=== PATIENT | female | born 1970 | race Caucasian/White ===

== ENCOUNTER 2017-05-06 05:08 | Emergency (ER) | payer MEDICAID ==
[~2017-05-06] VITALS: Ht 160 cm; Wt 92.5 kg
[~2017-05-06 05:08] MED LIST: MECL12.574 PO
[2017-05-06 05:13] VITALS: Ht 160 cm; Wt 92.5 kg
[2017-05-06] MEDS ORDERED: ACETAMINOPHEN 325 MG TAB PO STA (06:06)
[2017-05-06] MEDS ORDERED: SOD CHLORIDE 0.9% IV ONE (06:30)
[2017-05-06 06:53] LABS: BASOPHILS % 0.2 % (0.0-2.0); HEMATOCRIT 36.1 % (37.0-47.0); HEMOGLOBIN 12.9 g/dl (12.0-16.0); LYMPHOCYTES # 1.2 10^3/ul (0.8-2.9); LYMPHOCYTES % 7.2 % (15.0-51.0); MEAN CORPUSCULAR HEMOGLOBIN 31.3 pg (29.0-33.0); MEAN CORPUSCULAR HGB CONC 35.7 g/dl (32.0-37.0); MEAN CORPUSCULAR VOLUME 87.6 fl (82.0-101.0); MEAN PLATELET VOLUME 10.2 fl (7.4-10.4); MONOCYTE # 0.6 10^3/ul (0.3-0.9); MONOCYTES % 3.8 % (0.0-11.0); NEUTROPHIL # 14.4 10^3/ul (1.6-7.5); NEUTROPHILS % 88.3 % (39.0-77.0); PLATELET COUNT 296 10^3/UL (140-415); RED BLOOD COUNT 4.12 10^6/ul (4.20-5.40); RED CELL DISTRIBUTION WIDTH 12.5 % (11.5-14.5); WHITE BLOOD COUNT 16.3 10^3/ul (4.8-10.8)
--- NOTE | 2017-05-06 07:04 | RADRPT ---
PROCEDURE: Chest. CLINICAL INDICATION: Chest pain. TECHNIQUE: Single frontal view of the chest was obtained. COMPARISON: None. FINDINGS: The cardiac silhouette is within normal limits. The aortic arch is unremarkable. There is no focal consolidation, vascular congestion or pleural effusion. There is no pneumothorax. IMPRESSION: No evidence for active cardiopulmonary disease. .Otto Garcia MD, MD Date Time Electronically viewed and signed by .Otto Garcia MD, on 05/06/2017 07:03 .T/
[2017-05-06 07:11] LABS: ADD UMIC YES; UR ASCORBIC ACID NEGATIVE (NEGATIVE); UR BACTERIA FEW /HPF (NONE SEEN); UR BILIRUBIN (Dip) NEGATIVE (NEGATIVE); UR BLOOD (Dip) 3+ mg/dL (NEGATIVE); UR CLARITY SLIGHTLY CLOUDY (CLEAR); UR COLOR YELLOW (YELLOW); UR GLUCOSE (Dip) NEGATIVE (NEGATIVE); UR KETONES (Dip) NEGATIVE (NEGATIVE); UR LEUKOCYTE ESTERASE (Dip) NEGATIVE Leu/ul (NEGATIVE); UR MUCUS FEW /HPF (NONE SEEN); UR NITRITE (Dip) NEGATIVE (NEGATIVE); UR RBC 61 /HPF (0-5); UR SPECIFIC GRAVITY (Dip) 1.024 (1.003-1.030); UR SQUAMOUS EPITHELIAL CELL MODERATE /HPF (FEW); UR TOTAL PROTEIN (Dip) 1+ mg/dl (NEGATIVE); UR UROBILINOGEN (Dip) NEGATIVE (NEGATIVE)
[2017-05-06 07:13] LABS: INR 0.99; PROTIME 13.1 Sec (12.2-14.2)
[2017-05-06 07:18] LABS: ALANINE AMINOTRANSFERASE 25 IU/L (13-69); ALBUMIN 4.3 g/dl (3.3-4.9); ALKALINE PHOSPHATASE 70 IU/L (42-121); ANION GAP 21 (8-16); ASPARTATE AMINO TRANSFERASE 24 IU/L (15-46); BILIRUBIN,INDIRECT 0.1 mg/dl (0-1.1); BILIRUBIN,TOTAL 0.1 mg/dl (0.2-1.3); BLOOD UREA NITROGEN 10 mg/dl (7-20); CALCIUM 9.4 mg/dl (8.4-10.2); CARBON DIOXIDE 28 mmol/L (21-31); CHLORIDE 94 mmol/L (97-110); CREATININE 0.62 mg/dl (0.44-1.00); GLUCOSE 140 mg/dl (70-220); POSITIVE DIFF @See below; POTASSIUM 3.4 mmol/L (3.5-5.1); SODIUM 140 mmol/L (135-144); TOTAL PROTEIN 7.6 g/dl (6.1-8.1)
[2017-05-06 07:30] LABS: TROPONIN-I < 0.012 ng/ml (0.00-0.12)
[2017-05-06] MEDS ORDERED: SODIUM CHLORIDE 0.9% 1L BAG IV* STA (08:16)
[2017-05-06] MEDS: ONDANSETRON 4 MG INJ IV STA ×2 (08:16→08:54)
[2017-05-06] MEDS ORDERED: CEFTRIAXONE 2 GM/50 ML (PMX) 50 ML IVPB STA (08:16)
[2017-05-06] MEDS ORDERED: VANCOMYCIN 1 GM (PMX) 250 ML IVPB STA (08:16)
[2017-05-06] MEDS ORDERED: DEXAMETHASONE 10 MG/ML 1 ML INJ IV STA (08:16)
[2017-05-06] MEDS: morphine 4 MG/ML VIAL IV STA ×2 (08:16→08:54)
[2017-05-06] MEDS ORDERED: IBUPROFEN 800 MG TAB PO ONE (08:30)
--- NOTE | 2017-05-06 08:44 | RADRPT ---
PROCEDURE: CT brain without contrast CLINICAL INDICATION: Headache, fever TECHNIQUE: CT of the brain without contrast performed on a multidetector CT scanner, with multiplan ar reformats. One or more of the following dose reduction techniques were used: Automated exposure control, adjustment in mA and / or kV according to patient size, use of iterative reconstructive aaron hnique. CTDIvol = 44 mGy; DLP = 720 mGy-cm. COMPARISON: CT brain 04/20/2016 FINDINGS: No acute intracranial hemorrhage is identified. No extra-axial fluid collection is seen. There is no mass effect. No midline shift is identified. The ventricles and sulci are within normal limits for size and configuration. The density of the brain is unremarkable. Fleming-white differentiation is preserved. Calvarium and skull base are intact. Noted is mild focal right parietal scalp thickening without si gnificant change. There are bubbly secretions in the right sphenoid sinus. IMPRESSION: 1. No evidence of acute intracranial pathology. 2. Right sphenoid sinus disease with secretions which may reflect acute sinusitis in the appropriat e clinical setting. RPTAT: AA .Amilcar Vaughan MD, MD Date Time Electronically viewed and signed by .Amilcar Vaughan MD, on 05/06/2017 08:44 .O/
--- NOTE | 2017-05-06 09:07 | ERA ---
ER Documentation Chief Complaint Date/Time DATE: 05/06/17 TIME: 09:05 Chief Complaint fever/headache x /body aches 2 days HPI This is a 46-year-old female with no past medical history that presents to the emergency department complaining of generalized myalgias over the past 48 hours. She indicates that yesterday evening roughly 24 hours prior to arrival she developed a pulsating bilateral frontal headache. She states this is not the worst headache of her life and she denied any changes in vision or weakness of her upper or lower extremities. She denies any recent travel or prolonged immobilization. The patient also indicates that she has been experiencing neck pain since the headache began. She has had no recent sick contacts. She denies any abdominal pain. She complains of mild frequency urgency and dysuria. She did not take any antipyretics prior to arrival. She has no chest pain or pressure that radiates to the neck arm back or jaw. She has no shortness of breath at rest or exertion. ROS All systems reviewed and are negative except as per history of present illness. Medications Home Meds Active Scripts Cephalexin* (Keflex*) 500 Mg Capsule, 500 MG PO QID for 10 Days, CAP Prov:ALTA DILL 05/06/17 Acetaminophen* (Tylophen*) 500 Mg Capsule, 2 CAP PO Q8H Y for PAIN AND OR ELEVATED TEMP, #20 CAP Prov:ALTA DILL 05/06/17 Ibuprofen* (Motrin*) 800 Mg Tab, 800 MG PO Q6H Y for PAIN AND OR ELEVATED TEMP, #30 TAB Prov:ALTA DILL 05/06/17 Reported Medications Hydrochlorothiazide* (Hydrochlorothiazide*) 25 Mg Tab, 25 MG PO DAILY, #30 TAB 05/06/17 Losartan Potassium* (Losartan Potassium*) 25 Mg Tablet, 25 MG PO DAILY, TAB 05/06/17 Aspirin (Aspir-Low) 81 Mg Tablet.dr, 81 MG PO DAILY 05/06/17 Discontinued Scripts Meclizine Hcl* (Antivert*) 12.5 Mg Tab, 12.5 MG PO Q6H Y for DIZZINESS, #30 TAB Prov:MIGEL CAMACHO PA-C 04/20/16 Allergies Allergies: Coded Allergies: No Known Drug Allergies (Verified Allergy, Unknown, 05/06/17) PMhx/Soc History of Surgery: No Anesthesia Reaction: No Hx Neurological Disorder: No Hx Respiratory Disorders: No Hx Cardiac Disorders: Yes (htn) Hx Psychiatric Problems: No Hx Miscellaneous Medical Probl: No Hx Alcohol Use: No Hx Substance Use: No Hx Tobacco Use: No Smoking Status: Never smoker Physical Exam Vitals Vital Signs Date Time Temp Pulse Resp B/P Pulse Ox O2 Delivery O2 Flow Rate FiO2 05/06/17 11:26 98.6 88 17 117/72 100 Room Air 05/06/17 08:55 98.4 05/06/17 05:13 102.7 111 20 132/72 98 Physical Exam Constitutional:Well-developed. Well-nourished. HEENT:Normocephalic. Atraumatic.Pupils were equal round reactive to light. Dry mucous membranes.No tonsillar exudates. Endoscopy exam showed sharp optic disks and venous pulsations are present Neck: No nuchal rigidity. No lymphadenopathy. No posterior cervical spine tenderness or step-offs. Respiratory: Not using accessory muscles of respiration.Lungs were clear to auscultation bilaterally. No rhonchi. No rales. No wheezing. Cardiovascular: Regular rate regular rhythm.No murmurs. No rubs were appreciated.S1, S2 normal. Distal pulses are palpable 2+ bilaterally. GI: Abdomen was soft. Nontender. Non Distended. No pulsatile abdominal masses or bruits. No rebound. No guarding. Bowel sounds were present and normal. Muscle skeletal: Full range of motion of both the upper and lower extremities bilaterally.Normal muscle tone.No assymetrical calf tenderness or swelling. Skin: No petechia, no purpura. No lesions on the palms or the soles of the feet. No maculopapular rash. NEURO: Patient was alert, awake, orientated x3.No facial droop. Gait observed and normal with no ataxia.Speech had regular rate and rhythm. No focal neurological deficits. Result Diagram: 05/06/17 0630 05/06/17 0630 Results 24 hrs Laboratory Tests Test 05/06/17 06:30 05/06/17 06:45 05/06/17 09:48 05/06/17 11:07 White Blood Count 16.310^3/ul Red Blood Count 4.1210^6/ul Hemoglobin 12.9g/dl Hematocrit 36.1% Mean Corpuscular Volume 87.6fl Mean Corpuscular Hemoglobin 31.3pg Mean Corpuscular Hemoglobin Concent 35.7g/dl Red Cell Distribution Width 12.5% Platelet Count 87602^3/UL Mean Platelet Volume 10.2fl Neutrophils % 88.3% Lymphocytes % 7.2% Monocytes % 3.8% Eosinophils % 0.0% Basophils % 0.2% Nucleated Red Blood Cells % 0.0/100WBC Neutrophils # 14.410^3/ul Lymphocytes # 1.210^3/ul Monocytes # 0.610^3/ul Eosinophils # 0.010^3/ul Basophils # 0.010^3/ul Nucleated Red Blood Cells # 0.010^3/ul Prothrombin Time 13.1Sec Prothrombin Time Ratio 1.0 INR International Normalized Ratio 0.99 Activated Partial Thromboplast Time 28.0Sec Sodium Level 140mmol/L Potassium Level 3.4mmol/L Chloride Level 94mmol/L Carbon Dioxide Level 28mmol/L Anion Gap 21 Blood Urea Nitrogen 10mg/dl Creatinine 0.62mg/dl Glucose Level 140mg/dl Lactic Acid Level 1.6mmol/L 1.0mmol/L Calcium Level 9.4mg/dl Total Bilirubin 0.1mg/dl Direct Bilirubin 0.00mg/dl Indirect Bilirubin 0.1mg/dl Aspartate Amino Transf (AST/SGOT) 24IU/L Alanine Aminotransferase (ALT/SGPT) 25IU/L Alkaline Phosphatase 70IU/L Troponin I < 0.012ng/ml Total Protein 7.6g/dl Albumin 4.3g/dl Globulin 3.30g/dl Albumin/Globulin Ratio 1.30 Urine Color YELLOW Urine Clarity SLIGHTLY CLOUDY Urine pH 5.0 Urine Specific [place] 1.024 Urine Ketones NEGATIVEmg/dL Urine Nitrite NEGATIVEmg/dL Urine Bilirubin NEGATIVEmg/dL Urine Urobilinogen NEGATIVEmg/dL Urine Leukocyte Esterase NEGATIVELeu/ul Urine Microscopic RBC 61/HPF Urine Microscopic WBC 6/HPF Urine Squamous Epithelial Cells MODERATE/HPF Urine Bacteria FEW/HPF Urine Mucus FEW/HPF Urine Hemoglobin 3+mg/dL Urine Glucose NEGATIVEmg/dL Urine Total Protein 1+mg/dl CSF Tubes Submitted 4 CSF Volume 10.0ml CSF Appearance CLEAR CSF Color COLORLESS CSF WBC 2/cmm CSF RBC 0/uL CSF Cell Count Tube # TUBE#3 CSF Mononuclear Cells % (Auto) 100.0% CSF Polynuclear WBCs (%) 0.0% CSF Glucose 80mg/dl CSF Total Protein 43mg/dl Current Medications Medications (Trade) Dose Ordered Sig/Parag Route PRN Reason Start Time Stop Time Status Last Admin Dose Admin Acetaminophen 650 mg 650 mg ONCE STAT PO 05/06/17 06:06 05/06/17 06:11 DC 05/06/17 06:28 Sodium Chloride 2,870 ml @ 2,870 mls/hr BOLUS X1 ONCE IV 05/06/17 06:30 05/06/17 07:29 DC 05/06/17 06:28 Ceftriaxone Sodium (Rocephin) 50 ml @ 100 mls/hr ONCE STAT IVPB 05/06/17 08:16 05/06/17 08:45 DC 05/06/17 08:53 Dexamethasone 10 mg 10 mg ONCE STAT IV 05/06/17 08:16 05/06/17 08:20 DC 05/06/17 08:52 Vancomycin HCl (Vancocin) 250 ml @ 125 mls/hr ONCE STAT IVPB 05/06/17 08:16 05/06/17 10:15 DC 05/06/17 11:18 Sodium Chloride (NS) 2,870 ml BOLUS OVER 2 HOURS STAT IV* 05/06/17 08:16 05/06/17 08:20 DC Ibuprofen (Motrin) 800 mg ONCE ONCE PO 05/06/17 08:30 05/06/17 08:31 DC Morphine Sulfate (morphine) 4 mg ONCE STAT IV 05/06/17 08:16 05/06/17 08:20 DC 05/06/17 08:16 Ondansetron HCl (Zofran Inj) 4 mg ONCE STAT IV 05/06/17 08:16 05/06/17 08:20 DC 05/06/17 08:16 Procedures/MDM The patient presented to the emergency department with an acute single headache that presented within hours of onset my differential diagnosis included but was not limited to meningitis, SAH, intracerebral hemorrhage, hypertensive encephalopathy, cranial artery dissection, cerebral venous sinus thrombosis, traumatic, acute sinusitis. The patient has no ocular symptoms to suggest temporal neuritis, acute narrow-angle glaucoma or pituitary apoplexy. The patient did not appear to have a toxic or metabolic etiology such as fever, hypoglycemia, high-altitude disease or carbon monoxide poisoning. This was not the patients worse headache of their life. The patient had a complete neurologic and fundoscopic exam performed by myself that was normal with no focal neurological deficits or retinal hemorrhage. The patient stated this headache was not severe or distinct from other headaches and the history with the physical exam findings did not likely suggest SAH. 12 Lead EKG tracing ordered and reviewed by myself showed: Normal sinus rhythm of 100 bpm and no arrhythmia. [place] interval normal. QRS duration normal. No ST segment elevation No ST segment depression. No changes consistent with acute ischemia. Given that the patient was febrile with a headache and neck pain I did feel is necessary to rule out acute meningitis. Therefore, I did feel it was clinically necessary to perform a lumbar puncture and CSF analysis. The patient provided a written consent for lumbar puncture. Lumbar Puncture by me: Patient consented, time out performed, sterilely prepped/draped, anesthetized locally. Anesthesia: 1% lidocaine locally Location: One interspace below the iliac crest Technique: 20 gauge needle with stylet for entry and removal of needle Results: 2 attempts were made and I was unable to obtain CSF fluid. Therefore at this time I spoke with the radiologist who kindly stated they will perform a lumbar puncture under fluoroscopy. No post procedure complications , bleeding, numbness or weakness. In order to prevent delay of treatment the patient received IV steroids just prior to antibiotics being given which included ceftriaxone and vancomycin. The patient received intravenous morphine and Zofran for analgesic control. Prior to the lumbar puncture CT scan of the head had been performed and there is no signs of intracerebral hemorrhage mass-effect or midline shift. The radiologist was able to obtain a fluoroscopy guided lumbar puncture. Upon reviewing the results of the CSF fluid there was no signs of a subarachnoid hemorrhage and there was no findings to suggest bacterial viral or fungal meningitis. The patient had already received antibiotics which included ceftriaxone and vancomycin as stated above. She did have leukocytosis and did meet sirs criteria but her lactic acid was within normal limits. Observation Note: Time: 6 hours Family Hx: No Hypertension Evaluation: Multiple exams showed improving symptoms and no evidence of meningitis. I did feel the patient cephalgia secondary to myalgias from being febrile. Her fever completely resolved. The patient was to be admitted however when I explained to her that she would be staying in the hospital she stated she would prefer to be discharged home as her symptoms had completely resolved. She stated she needed to work and would feel more comfortable being discharged home with a prescription for antibiotics. The patient did have a urinary tract infection and therefore will be sent home with Keflex and fever control with Motrin and acetaminophen. The patient was also instructed to lie down flat over the next 6 hours to prevent a post lumbar puncture cephalgia. The patient was discharged home in fair condition. They were instructed to return to the emergency department at any time if there was any worsening of their condition. The patient stated they would follow up with their PCP in the next 24-48 hours to initiate a suitable medication regimen under the care of their PCP as well as to allow their PCP to monitor any drug reactions. The patient was discharged home with prescriptions after they gave informed consent to the new medication. They were also fully informed by myself on the adverse effects and adverse drug interactions in order to provide adequate safeguards to prevent possible adverse reactions to medications. Departure Diagnosis: Primary Impression: Urinary tract infection Qualified Code: N30.00 - Acute cystitis without hematuria Additional Impressions: Leukocytosis Qualified Code: D72.829 - Leukocytosis, unspecified type Fever Qualified Code: R50.9 - Fever, unspecified fever cause Headache, classical migraine Qualified Code: G43.109 - Migraine with aura and without status migrainosus, not intractable Condition: Fair ALTA DILL May 06, 2017 09:07
[2017-05-06 11:26] VITALS: BP 117/72; PULSE 88; RESP 17; TEMP 98.6
--- NOTE | 2017-05-06 12:08 | RADRPT ---
PROCEDURE: Lumbar puncture CLINICAL INDICATION: Headaches. Fever. TECHNIQUE: Risks benefits and alternatives of the procedure were explained to the patient. Inform ed written consent was obtained. The overlying skin of the lower back was prepped and draped in the usual sterile fashion. Utilizing fluoroscopic guidance, a skinny 22-gauge lumbar spinal needle was introduced into the spinal canal at the L4-5 level without difficulty. 10.5 cc of clear cerebrospi nal fluid was obtained. No complications occurred. The patient was instructed to lie flat for the next 4-6 hours to reduce the risk of spinal headache. Fluoro time: 0.7 minutes. Fluoroscopic imag es obtained: 2. Estimated cumulative dose: 25.5 mGy. COMPARISON: None available FINDINGS: Successful lumbar puncture under fluoroscopic guidance. IMPRESSION: Successful lumbar puncture under fluoroscopic guidance. RPTAT: QQ .John Harper MD, Date Time Electronically viewed and signed by .John Harper MD, on 05/06/2017 12:08 .A/
[2017-05-06 13:00] LABS: GLUCOSE,CSF 80 mg/dl (50-80)
[2017-05-06 13:16] LABS: CSF COLOR COLORLESS; CSF#TUBES REC'D 4
[2017-05-06 13:17] LABS: CSF#TUBE COUNT TUBE#1
[2017-05-06 13:19] LABS: CSF COLOR COLORLESS; CSF#TUBE COUNT TUBE#3; CSF#TUBES REC'D 4
[2017-05-06] MEDS ORDERED: ASPI81TA50 PO (13:36)
[2017-05-06] MEDS ORDERED: HYD25 PO (13:37)
[2017-05-06] MEDS ORDERED: LOSA25TA5 PO (13:37)
[2017-05-06] MEDS ORDERED: ACET500C5 PO (14:08)
[2017-05-06] MEDS ORDERED: IBUP800T25 PO (14:08)
[2017-05-06] MEDS ORDERED: CEPH-443 PO (14:08)
== END 2017-05-06 14:25 | disposition home or self-care (01) ==
LOC: FTE 05:08 → E/R 14:25
DX: N30.00 Acute cystitis without hematuria (principal); D72.829 Elevated white blood cell count, unspecified; G43.109 Migraine with aura, not intractable, without status migrainosus; I10 Essential (primary) hypertension; R07.9 Chest pain, unspecified; Z79.82 Long term (current) use of aspirin
CPT/HCPCS: 36415; 62270; 70450; 71010; 80053; 81001; 82945; 83605; 84157; 84484; 85025; 85610; 85730; 87040; 87070; 87086; 89051; 93005; 96361; 96365; 96366; 96375; J0696; J1100; J2270; J2405; J3370; J7030; Z7502; Z7610

== ENCOUNTER 2018-10-14 08:09 | Emergency (ER) | payer MEDICAID ==
[~2018-10-14] VITALS: Wt 94.1 kg
[~2018-10-14 08:09] MED LIST changes: +ACET500C5 PO; +ASPI81TA50 PO; +CEPH-443 PO; +HYDR25TA6 PO; +IBUP800T48 PO; +LOSA25TA12 PO; -MECL12.574 PO
[2018-10-14 08:15] VITALS: BP 161/94; PULSE 94; RESP 18
[2018-10-14] MEDS ORDERED: KETOROLAC 30 MG INJ IM STA (08:32)
[2018-10-14] MEDS ORDERED: IBUP-1542 PO (08:33)
--- NOTE | 2018-10-14 09:15 | ERD ---
ER Documentation Chief Complaint Chief Complaint LEFT LOWER BACK PAIN THAT RADIATES DOWN THE LEG X 3 MONTHS HPI Patient is a 48-year-old female with hypertension who presents with back pain. The patient has pain in the lower back and radiates down the left leg. The patient's symptoms started 3 months ago. She denies incontinence or fevers. She has no history of cancer. She tried ibuprofen for her pain. She does have a primary doctor. ROS All systems reviewed and are negative except as per history of present illness. Medications Home Meds Active Scripts Ibuprofen* (Motrin*) 600 Mg Tab, 600 MG PO Q6H PRN for PAIN AND OR ELEVATED TEMP, #30 TAB Prov:RUFINO HUI MD 10/14/18 Cephalexin* (Keflex*) 500 Mg Capsule, 500 MG PO QID for 10 Days, CAP Prov:ALTA DILL MD 05/06/17 Acetaminophen* (Tylophen*) 500 Mg Capsule, 2 CAP PO Q8H PRN for PAIN AND OR ELEVATED TEMP, #20 CAP Prov:ALTA DILL MD 05/06/17 Ibuprofen* (Motrin*) 800 Mg Tab, 800 MG PO Q6H PRN for PAIN AND OR ELEVATED TEMP, #30 TAB Prov:ALTA DILL MD 05/06/17 Reported Medications Hydrochlorothiazide* (Hydrochlorothiazide*) 25 Mg Tab, 25 MG PO DAILY, #30 TAB 05/06/17 Losartan Potassium* (Losartan Potassium*) 25 Mg Tablet, 25 MG PO DAILY, TAB 05/06/17 Aspirin (Aspir-Low) 81 Mg Tablet.dr, 81 MG PO DAILY 05/06/17 Allergies Allergies: Coded Allergies: No Known Drug Allergies (Verified Allergy, Unknown, 05/06/17) PMhx/Soc History of Surgery: No Anesthesia Reaction: No Hx Neurological Disorder: No Hx Respiratory Disorders: No Hx Cardiac Disorders: Yes (htn) Hx Psychiatric Problems: No Hx Miscellaneous Medical Probl: No Hx Alcohol Use: No Hx Substance Use: No Hx Tobacco Use: No FmHx Family History: diabetes Physical Exam Vitals Vital Signs Date Temp Pulse Resp B/P (MAP) Pulse Ox O2 O2 Flow FiO2 Time Delivery Rate 10/14/18 98.0 94 18 161/94 100 08:15 (116) Physical Exam Const: No acute distress Head: Atraumatic Eyes: Normal Conjunctiva ENT: Normal External Ears, Nose and Mouth. Neck: Full range of motion. No meningismus. Resp: Clear to auscultation bilaterally Cardio: Regular rate and rhythm, no murmurs Abd: Soft, non tender, non distended. Normal bowel sounds Skin: No petechiae or rashes Back: No midline or flank tenderness Ext: No cyanosis, or edema Neur: Awake and alert, strength in the lower extremities are 5 out of 5 Psych: Normal Mood and Affect Results 24 hrs Laboratory Tests Test 10/14/18 08:47 POC Beta HCG, Qualitative NEGATIVE Current Medications Medications Dose Sig/Parag Start Time Status Last (Trade) Ordered Route PRN Stop Time Admin Dose Reason Admin Ketorolac 30 mg ONCE STAT 10/14/18 DC 10/14/18 Tromethamine IM 08:32 10/14/18 08:55 (Toradol) 08:33 Procedures/MDM Patient is a 48-year-old female who presents with lower back pain and left-sided leg pain. Her symptoms are consistent with acute sciatica. I doubt epidural abscess, epidural hematoma, or cauda equina syndrome. The patient was given Toradol for pain and will be given a prescription for ibuprofen. She can follow-up with her primary doctor. I do not believe she requires imaging test at this time in the emergency department. She can follow-up with her primary doctor within 1 week as an outpatient. Departure Diagnosis: Primary Impression: Sciatic nerve pain Laterality: left Qualified Codes: M54.32 - Sciatica, left side Additional Impression: Back pain Back pain location: low back pain Chronicity: acute Back pain laterality: left Sciatica presence: with sciatica Sciatica laterality: sciatica of left side Qualified Codes: M54.42 - Lumbago with sciatica, left side Condition: Fair Patient Instructions: Back Pain W/ Sciatica Referrals: Dr. Garrett Additional Instructions: Llame al doctor nomshahrzad cowan (Referral Sources) MAANA y saleem oumou BABITA PARA DENTRO DE OUMOU SEMANA. Dgale a la secretaria que nosotros le instruimos hacer esta babita.Avise o llame si diaz condicin se empeora antes de la babita. RUFINO HUI MD Oct 14, 2018 09:15
== END 2018-10-14 09:11 | disposition home or self-care (01) ==
LOC: FTE 08:09
DX: M54.42 Lumbago with sciatica, left side (principal); I10 Essential (primary) hypertension; Z79.82 Long term (current) use of aspirin
CPT/HCPCS: 81025; 96372; J1885; Z7502